=== PATIENT | female | born 1990 | race African-American/Black ===

== ENCOUNTER 2018-11-20 08:52 | Emergency (ER) | payer OTHER ==
[~2018-11-20] VITALS: Ht 160 cm; Wt 72.6 kg
--- NOTE | 2018-11-20 09:21 | PHYS DOC ---
Past History Past Medical History: No Pertinent History Past Surgical History: No Surgical History Smoking: Non-smoker Alcohol Use: None Drug Use: None Adult General Chief Complaint Chief Complaint: SORE THROAT HPI HPI Patient is a 28 year old female who presents with complaining of sore throat. Patient complaining of constant sore throat for the last 5 days with radiation to her ear and rated her pain 7/10. Patient complaining of mild headache and not feeling good without fever and chills, nausea vomiting, , sick contact. Review of Systems Review of Systems Constitutional: Denies fever or chills [] Eyes: Denies change in visual acuity, redness, or eye pain [] HENT: Denies nasal congestion, reports sore throat [] Respiratory: Denies cough or shortness of breath [] Cardiovascular: No additional information not addressed in HPI [] GI: Denies abdominal pain, nausea, vomiting, bloody stools or diarrhea [] : Denies dysuria or hematuria [] Musculoskeletal: Denies back pain or joint pain [] Integument: Denies rash or skin lesions [] Neurologic: Reports headache, denies focal weakness or sensory changes [] Endocrine: Denies polyuria or polydipsia [] All other systems were reviewed and found to be within normal limits, except as documented in this note. Current Medications Current Medications Current Medications Medications (Trade) Dose Ordered Sig/Sha Start Time Stop Time Status Last Admin Dose Admin Ibuprofen (Motrin) 600 mg 1X ONCE 11/20/18 09:15 11/20/18 09:16 UNV Allergies Allergies Allergies Coded Allergies Type Severity Reaction Last Updated Verified No Known Drug Allergies 11/20/18 No Physical Exam Physical Exam Constitutional: Well developed, well nourished, mild distress, non-toxic appearance. [] HENT: Normocephalic, atraumatic, bilateral external ears normal, oropharynx moist, bilateral tonsillar erythema and edema with exudate, nose normal. [] Eyes: PERRLA, EOMI, conjunctiva normal, no discharge. [] Neck: Normal range of motion, no tenderness, supple, no stridor, bilateral cervical lymphadenopathy. [] Cardiovascular:Heart rate regular rhythm, no murmur [] Lungs & Thorax: Bilateral breath sounds clear to auscultation [] Skin: Warm, dry, no erythema, no rash. [] Extremities: No tenderness, no cyanosis, no clubbing, ROM intact, no edema. [] Neurologic: Alert and oriented X 3, normal motor function, normal sensory function, no focal deficits noted. [] Psychologic: Affect normal, judgement normal, mood normal. [] Current Patient Data Vital Signs Vital Signs Date Time Temp Pulse Resp B/P (MAP) Pulse Ox O2 Delivery O2 Flow Rate FiO2 11/20/18 09:05 98.1 82 20 100 Room Air EKG EKG [] Radiology/Procedures Radiology/Procedures [] Course & Med Decision Making Course & Med Decision Making Pertinent Labs reviewed. (See chart for details) Evaluation of patient in ER showed 28-year-old female patient with complaining of sore throat for 5 days. Patient had bilateral tonsillar erythema and edema and exudate and positive strep test. Patient agreed to have a shot of Bicillin in ER. I've spoken with the patient and/or caregivers. I've explained the patient's condition, diagnosis and treatment plan based on information available to me at this time. I've answered the patient's and/or caregivers questions and addressed any concerns. The patient and/or caregivers have a good understanding the patient's diagnosis, condition and treatment plan as can be expected at this point. Vital signs have been stabilized. The patient's condition is stable for discharge from the emergency department. The patient will pursue further outpatient evaluation with her primary care provider or other designated consulting physician as outlined in the discharge instructions. Patient and/or caregivers are agreeable to this plan of care and follow-up instructions have been explained in detail. The patient and/or caregivers have received these instructions in written format and expressed understanding of these discharge instructions. The patient and her caregivers are aware that if any significant change in condition or worsening of symptoms should prompt him to immediately return to this of the closest emergency department. If an emergent department is not readily available I would enco urage him to call 911. Ruddy Disclaimer Dragon Disclaimer This electronic medical record was generated, in whole or in part, using a voice recognition dictation system. Departure Departure: Impression: Primary Impression: Acute streptococcal pharyngitis Disposition: HOME, SELF-CARE (at [id number]) Condition: IMPROVED Referrals: JEANNIE CHAVEZ (PCP) Patient Instructions: Strep Throat Additional Instructions: Drink plenty of liquids Follow-up with your primary care physician in 3-5 days Return to ER if not getting better Scripts Ibuprofen (IBUPROFEN) 800 Mg Tablet 1 TAB PO TID for pain, #30 TAB Prov: BRYAN LOCKHART MD 11/20/18 BRYAN LOCKHART MD Nov 20, 2018 09:20
[2018-11-20] MEDS ORDERED: PENICILLIN G BENZATHINE LA 1,200,000 UNIT/2 ML DISP.SYRIN. IM ONE (09:45)
[2018-11-20] MEDS ORDERED: IBUPROFEN 600 MG TABLET. PO ONE (09:45)
[2018-11-20] MEDS ORDERED: IBUP800T19 PO (09:48)
[2018-11-20 09:59] VITALS: BP 114/84
== END 2018-11-20 09:53 | disposition home or self-care (01) ==
LOC: ER 08:52
DX: J02.0 Streptococcal pharyngitis (principal); B95.0 Streptococcus, group A, as the cause of diseases classified elsewhere; R51 Headache
CPT/HCPCS: 87880; 96372; 99283; J0561